=== PATIENT | female | born 1985 | race African-American/Black ===

== ENCOUNTER 2017-01-31 15:42 | Emergency (ER) | payer SELFPAY | END 2017-01-31 16:42 | disposition left against medical advice (07) | LOC: ED 15:42 | DX: Z53.21 Procedure and treatment not carried out due to patient leaving prior to being seen by health care provider (principal) ==

== ENCOUNTER 2017-08-16 10:45 | Emergency (ER) | payer SELFPAY ==
[~2017-08-16] VITALS: Ht 172.7 cm; Wt 72.6 kg
[2017-08-16 10:51] VITALS: BP 129/77
== END 2017-08-16 11:11 | disposition left against medical advice (07) ==
LOC: ED 10:45
DX: Z53.21 Procedure and treatment not carried out due to patient leaving prior to being seen by health care provider (principal)